=== PATIENT | male | born 1965 | race Native Hawaiian/Other Pacific Islander ===

== ENCOUNTER 2021-10-08 08:20 | Emergency (ER) | payer OTHER ==
[~2021-10-08] VITALS: Ht 167.6 cm; Wt 77.1 kg
[2021-10-08 08:29] VITALS: TEMP 97.2
[2021-10-08 09:21] VITALS: BP 148/90
== END 2021-10-08 09:22 | disposition home or self-care (01) ==
LOC: ED 08:20
DX: K02.9 Dental caries, unspecified (principal)
CPT/HCPCS: 96372; 99283; J1885